=== PATIENT | male | born 1970 | race Caucasian/White ===

== ENCOUNTER 2019-09-07 14:07 | Observation (INO) | payer BC ==
[~2019-09-07] VITALS: Ht 182.9 cm; Wt 80.0 kg
--- NOTE | 2019-09-07 14:25 | NUR ---
To room 13 via wc in stable condition.
[2019-09-07] MEDS ORDERED: CLINDAMYCIN HC150 MG PO (14:26)
[2019-09-07] MEDS ORDERED: PREDNISONE10 MG PO (14:27)
[2019-09-07] MEDS ORDERED: LIDOCAINE HCL VIS2 % (14:30)
--- NOTE | 2019-09-07 15:06 | NUR ---
PT MEDICATED PER MAR; ADVISED OF POC AND CONTINUED WAIT TIME; VSS; CALL LIGHT WITHIN REACH; WILL CONTINUE TO MONITOR
[2019-09-07 15:08] LABS: HEMATOCRIT 45.5 % (39.0-50.0); HEMOGLOBIN 15.4 g/dl (14.0-18.0); IMMATURE GRANULOCYTES 1.3 % (0.0-5.0); MEAN CELL VOLUME 91.4 fL CALC (80.0-100.0); MEAN CORPUSCULAR HGB 30.9 pG CALC (26.0-32.0); MEAN CORPUSCULAR HGB CONC 33.8 g/dL CAL (32.0-36.0); NEUT# 6.94 thou/uL (1.82-7.42); RED BLOOD COUNT 4.98 mill/uL (4.70-6.10); RED CELL DISTRI WIDTH 13.9 % (11.5-15.5)
[2019-09-07 15:30] LABS: ALBUMIN 4.2 g/dL (3.2-5.0); CREATININE 1.6 mg/dL (0.7-1.3); POTASSIUM 3.8 mmol/l (3.5-5.1); TOTAL PROTEIN 8.3 g/dL (6.3-8.2)
--- NOTE | 2019-09-07 16:05 | NUR ---
PT RESTING ON STRETCHER WITH EYES CLOSED; NO S/S OF DISTRESS NOTED; VSS; WILL CONTINUE TO MONITOR
--- NOTE | 2019-09-07 17:05 | NUR ---
DR PA AT BEDSIDE TO DISCUSS POC AND FINDINGS
--- NOTE | 2019-09-07 18:00 | NUR ---
PT AMB TO BR WITH STEADY GAIT; PT DENIES ANY NEEDS AT THIS TIME; VSS; WILL CONTINUE TO MONITOR
--- NOTE | 2019-09-07 18:39 | NUR ---
TRIAL DIET OFFERED TO MONITOR TOLERANCE RELATED TO SORE THROAT, PT INSTRUCTED TO NOTIFY STAFF OF TOLERANCE, VERBALIZES UNDERSTANDING.
--- NOTE | 2019-09-07 19:05 | NUR ---
REPORT TO JOSEFINA OLIVEIRA
--- NOTE | 2019-09-07 20:02 | NUR ---
CALLED FLOOR. REPORT WAS ALREADY CALLED. PT RESTING. ANXIOUS TO GO TO FLOOR. PT ATE SOME OF DINNER TRAY. PT UP TO BR TO VOID. IVF COMPLETED. TO FLOOR VIA W/C.
[2019-09-08 00:50] VITALS: BP 123/82
[2019-09-08 03:30] VITALS: BP 123/82
[2019-09-08 05:39] VITALS: BP 123/84
[2019-09-08 07:35] VITALS: BP 134/83
--- NOTE | 2019-09-08 07:35 | NUR ---
ASSESSMENT IS COMPLETED:IV SITE IS FREE FROM REDNESS OR EDEMA. HR IS REG,PULSES ARE STRONG X4, ABD IS SOFT WITH ACTIVE BS., BREATH SOUNDS ARE CLEAR, HAS A NON PRODUCTIVE COUGH. C/O SORE THROAT. CONTINUE TO OSBERVE AND MONITOR.
--- NOTE | 2019-09-08 12:00 | NUR ---
PT IS RELAXING IN BED WITH NO DISTRESS NOTED. IV SITE IS FREE FROM REDNESS OR EDEMA.
[2019-09-08 15:41] VITALS: BP 146/90
--- NOTE | 2019-09-08 16:00 | NUR ---
PT IS RELAXING IN BED WITH NO DISTRESS NOTED, IV SITE IS FREE FROM REDNESS OR EDEMA
[2019-09-08 18:37] VITALS: BP 135/82
--- NOTE | 2019-09-08 19:40 | NUR ---
RESTING IN BED ON ROUNDS. RESP NON-LABORED. LUNGS CLEAR. IV IN LAC #20 WITH NS INFUSING AT 75 ML/HR. IV SITE BENIGN. SHIFT ASSESSMENT. COMPLETED. DISCUSSED PLAN OF CARE. DENIES NEEDS AT THIS TIME. CALL DODGE IN REACH.
--- NOTE | 2019-09-08 21:00 | NUR ---
REFUSED LOVENOX INJECTION. EXPLAINED RATIONALE FOR BLOOD THINNER. PATIENT STATES "I AM GOING HOME TOMORROW SO i AM NOT GOING TO TAKE THE SHOT."
--- NOTE | 2019-09-09 00:15 | NUR ---
RESTING WITHOUT COMPLAINTS. NO CHANGES TO REPORT.
[2019-09-09 03:05] VITALS: BP 134/87
--- NOTE | 2019-09-09 04:15 | NUR ---
SLEEPING OSUNDLY. IV INFUSING WITHOUT INCIDENT.
[2019-09-09 05:54] LABS: MEAN CELL VOLUME 92.5 fL CALC (80.0-100.0); MEAN CORPUSCULAR HGB 30.4 pG CALC (26.0-32.0); MEAN CORPUSCULAR HGB CONC 32.8 g/dL CAL (32.0-36.0); RED BLOOD COUNT 4.15 mill/uL (4.70-6.10)
[2019-09-09 05:59] LABS: HEMATOCRIT 38.4 % (39.0-50.0); HEMOGLOBIN 12.6 g/dl (14.0-18.0)
[2019-09-09 06:26] LABS: ALKALINE PHOSPHATASE 88 u/l (38-126); BILIRUBIN, TOTAL 0.9 mg/dL (0.0-1.4); BUN 24 mg/dL (9-20); BUN/CREATININE RATIO 26 (12-20 (CALC)); CHLORIDE 109 mmol/l (95-108); CREATININE 0.9 mg/dL (0.7-1.3); GFR > 60 ML/MIN (>=60 (CALC)); GFR FOR AFR.AMER. > 60 ML/MIN (>=60 (CALC)); POTASSIUM 4.2 mmol/l (3.5-5.1); SGOT/AST 25 u/l (17-59); SODIUM 139 mmol/l (137-146)
[2019-09-09 06:35] LABS: ALBUMIN 3.1 g/dL (3.2-5.0); ANION GAP 13 (6-22 (CALC)); CARBON DIOXIDE 21 mmol/l (22-30); TOTAL PROTEIN 6.4 g/dL (6.3-8.2)
[2019-09-09 08:00] VITALS: BP 147/93
--- NOTE | 2019-09-09 08:00 | NUR ---
ASSESSMENT IS COMPLETED: IV SITE IS FREE FROM REDNESS OR EDEMA. HR IS REG,PULSES ARE STRONG X4, ABD IS SOFT WITH ACTIVE BS. BREATH SOUNDS ARE CLEAR,BILATERALLY, C/O SORE THROAT.
[2019-09-09] MEDS ORDERED: AMOX/K CLAV875 M1 PO (10:27)
[2019-09-09] MEDS ORDERED: TRAMADOL HCL50 MG PO (10:29)
--- NOTE | 2019-09-09 12:00 | NUR ---
PT HAS BEEN RELAXING IN BED WITH NO DISTRESS NOTED. IV SITE IS FREE FROM REDNESS OR EDEMA. WAITING ON DISCHARGE INSTRUCTIONS.
--- NOTE | 2019-09-09 13:30 | NUR ---
IV SITE DISCONTINUED CATHETER INTACT. NO REDNESS OR EDEMA.
--- NOTE | 2019-09-09 13:37 | NUR ---
PT RECEIVED DISCHARGE INSTRUCTIONS AND VERBALIZED UNDERSTANDING. IV SITE WAS DISCONTINUED CATHETER INTACT. NO REDNESS OR EDEMA. CONTINUE TO OBSERVE AND MONITOR.
== END 2019-09-09 13:35 | disposition home or self-care (01) | DRG 153 ==
LOC: ED 14:07 → ED-I 17:15 → ED 17:31 → MS2 17:32 → ED-I 17:32 → MS2 19:00
PROVIDERS: Nurse Practitioner Family; ADMIT Internal Medicine; ATTEND Internal Medicine
DX: J02.0 Streptococcal pharyngitis (principal); N17.9 Acute kidney failure, unspecified; E86.0 Dehydration; F17.210 Nicotine dependence, cigarettes, uncomplicated; Z20.828 Contact with and (suspected) exposure to other viral communicable diseases
CPT/HCPCS: G0378; J1650; Q9967